=== PATIENT | male | born 1995 | race Caucasian/White ===

== ENCOUNTER 2020-02-10 17:10 | Emergency (ER) | payer BC, OTHER ==
[~2020-02-10] VITALS: Ht 187 cm; Wt 80.0 kg
--- NOTE | 2020-02-10 17:22 | ED Fall/Injury ---
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 Patient reports that the cattle hit his face in a horizontal motions striking his nose laterally. He has an obvious deformity to his nose. No obvious lacerations. He remembers the whole event. He was placed in a cervical collar by EMS, but is denying neck pain at this time.. Patient has been consuming alcohol throughout the day today along with marijuana. Approximately 30 minutes after the initial injury he had a near syncopal episode when he was walking. No previous history of syncope, chest pain, shortness of breath. Patient's family gave him a Percocet prior to EMS arriving for pain control. He was consuming alcohol all day yesterday and does feel like he is dehydrated. EMS was running normal saline 1 L while in route to the emergency department. Allergies and Home Medications Patient Home Medication List Home Medication List Reviewed: Yes Review of Systems Review of Systems Constitutional: no symptoms reported Ears, Nose, Mouth, Throat: nose pain; denies epistaxis Cardiovascular: syncope All Other Systems Reviewed Negative Unless Noted: Yes Past Ikebvwt-Mfeitm-Ayaydh Hx Patient Social History Physical Abuse: No Sexual Abuse: No Mistreated: No Fear: No Physical Exam Vital Signs Vital Signs - First Documented 02/10/20 17:10 Temp 35.9 Pulse 80 Resp 18 B/P (MAP) 130/68 (88) Pulse Ox 98 O2 Delivery Room Air Capillary Refill : Height, Weight, BMI Height: '" Weight: lbs. oz. kg; BMI Method: General Appearance: WD/WN, no apparent distress HEENT: other (Patient has a slightly deviated nasal bridge, no nasal hematoma is appreciated bilaterally. Tympanic membranes are clear bilaterally. No mckeon sign, no periorbital ecchymoses.) Neck: other (Cervical collar is in place.) Cardiovascular: regular rate, rhythm Respiratory: normal breath sounds, no respiratory distress, no accessory muscle use Gastrointestinal: non tender, soft, no organomegaly Extremities: normal inspection Neurologic/Psychiatric: no motor/sensory deficits, alert, normal mood/affect, other (Patient appears slightly intoxicated.) Skin: normal color, warm/dry Progress/Results/Core Measures Results/Orders Lab Results Laboratory Tests Test 02/10/20 17:30 Range/Units White Blood Count 9.6 4.3-11.0 10^3/uL Red Blood Count 4.41 4.35-5.85 10^6/uL Hemoglobin 13.3 13.3-17.7 G/DL Hematocrit 39 L 40-54 % Mean Corpuscular Volume 89 80-99 FL Mean Corpuscular Hemoglobin 30 25-34 PG Mean Corpuscular Hemoglobin Concent 34 32-36 G/DL Red Cell Distribution Width 13.1 10.0-14.5 % Platelet Count 216 130-400 10^3/uL Mean Platelet Volume 8.9 7.4-10.4 FL Sodium Level 141 135-145 MMOL/L Potassium Level 3.6 3.6-5.0 MMOL/L Chloride Level 106 98-107 MMOL/L Carbon Dioxide Level 21 21-32 MMOL/L Anion Gap 14 5-14 MMOL/L Blood Urea Nitrogen 14 7-18 MG/DL Creatinine 1.06 0.60-1.30 MG/DL Estimat Glomerular Filtration Rate > 60 BUN/Creatinine Ratio 13 Glucose Level 92 70-105 MG/DL Calcium Level 8.8 8.5-10.1 MG/DL Total Bilirubin 0.2 0.1-1.0 MG/DL Direct Bilirubin 0.2 0.0-0.3 MG/DL Indirect Bilirubin 0.0 MG/DL Aspartate Amino Transf (AST/SGOT) 24 5-34 U/L Alanine Aminotransferase (ALT/SGPT) 20 0-55 U/L Alkaline Phosphatase 67 40-136 U/L Total Protein 6.9 6.4-8.2 GM/DL Albumin 4.7 H 3.2-4.5 GM/DL My Orders Orders - ELIUD ROY MD Cbc No Diff (02/10/20 17:22) Basic Metabolic Panel (02/10/20 17:22) Liver Panel (02/10/20 17:22) Ekg Tracing (02/10/20 17:22) Ct Head/Face/Cervical Wo (02/10/20 17:22) Vital Signs/I&O 02/10/20 02/10/20 17:10 18:30 Temp 35.9 35.9 Pulse 80 80 Resp 18 18 B/P (MAP) 130/68 (88) 130/68 Pulse Ox 98 98 O2 Delivery Room Air Room Air Progress Progress Note : Progress Note Patient's examination was reassuring. He had an obvious slightly deviated nasal bone fracture without nasal septal hematomas. Given his mechanism of injury CT head, C-spine, max face were obtained. Patient was not in significant distress on exam and had already received pain medication prior to arrival. Given his prolonged day of alcohol consumption basic laboratory work was obtained along with an EKG in the setting of syncope. Possibly vasovagal related to his associated pain versus dehydration. Patient was not allowing an EKG to be performed. 182: Patient was becoming impatient with waiting for the results of his CT scans. I encouraged him to stay, but he stated that he had things that he needed to get done. He understood that we cannot entirely rule out significant intracranial injury without the results being back. He still elected to leave. Patient had clinical decision-making capacity to leave AGAINST MEDICAL ADVICE. He had an obvious nose fracture which I encouraged him to follow-up with either a facial plastic surgeon versus an ear nose and throat provider. Patient stated that he had no intentions on following up regarding his nose. Patient left prior to obtaining any sort of paperwork. Diagnostic Imaging Diagonstic Imaging: CT Comments CT of his head, neck, face significant for a comminuted displaced bilateral nasal bone fracture. No intracranial pathology, cervical spine was without acute injury. Departure Impression Primary Impression: Nasal bone fracture Qualified Codes: S02.2XXA - Fracture of nasal bones, initial encounter for closed fracture Disposition: 07 AGAINST MEDICAL ADVICE Condition: Against Medical Advice ELIUD ROY MD Feb 10, 2020 17:22
[2020-02-10 17:39] LABS: HEMOGLOBIN 13.3 G/DL (13.3-17.7); MEAN PLATELET VOLUME 8.9 FL (7.4-10.4); WHITE BLOOD COUNT 9.6 10^3/uL (4.3-11.0)
[2020-02-10 17:56] LABS: ALANINE AMINOTRANSFERASE 20 U/L (0-55); ALBUMIN 4.7 GM/DL (3.2-4.5); ALKALINE PHOSPHATASE 67 U/L (40-136); BILIRUBIN,DIRECT 0.2 MG/DL (0.0-0.3); BILIRUBIN,TOTAL 0.2 MG/DL (0.1-1.0); BUN/CREATININE RATIO 13; CALCIUM 8.8 MG/DL (8.5-10.1); CARBON DIOXIDE 21 MMOL/L (21-32); CHLORIDE 106 MMOL/L (98-107); CREATININE SERUM 1.06 MG/DL (0.60-1.30); GFR ESTIMATED > 60; GLUCOSE 92 MG/DL (70-105); POTASSIUM 3.6 MMOL/L (3.6-5.0); SODIUM 141 MMOL/L (135-145); TOTAL PROTEIN 6.9 GM/DL (6.4-8.2)
--- NOTE | 2020-02-10 18:27 | Diagnostic Imaging Report ---
PROCEDURE: CT head, face, and cervical spine without contrast. TECHNIQUE: Multiple contiguous axial images were obtained through the head, neck, and facial bones without the use of intravenous contrast. Sagittal and coronal reformations through the cervical spine and facial bones were also performed. Auto Exposure Controls were utilized during the CT exam to meet ALARA standards for radiation dose reduction. INDICATION: Kicked in the face by a cow. COMPARISON: No comparison is available. FINDINGS: The CT of the head demonstrates no evidence of acute intracranial hemorrhage. There is no subarachnoid hemorrhage or evidence of an extra-axial hematoma. There is no intracranial mass effect or shift. There is no hydrocephalus. De Jesus and white matter differentiation appears well-maintained. There is no abnormal low density within the basal ganglia or within the danielle. The mastoids are clear. There are no findings of a calvarial fracture. CT of the face demonstrates comminuted and mildly displaced fractures of both of the nasal bones. The bony orbit is intact. There are no findings of an orbital fracture. The intraorbital contents are unremarkable. There is no evidence of a fracture of the maxilla. The zygomatic arches are intact. There is no fracture of the pterygoids. There is no temporomandibular joint dislocation or evidence of a mandibular fracture. There is no air-fluid level evident within the paranasal sinuses. Cervical spine demonstrates normal alignment. There is normal alignment of the craniocervical junction. There are normal relationships of the lateral masses of C1 and C2. The facets are normally aligned. There is no facet joint or disc space widening. Vertebral body heights are maintained. There is no acute cervical spine fracture. There is no abnormal prevertebral soft tissue thickening. The lung apices appear clear. Soft tissues of the neck demonstrate no acute process. IMPRESSION: 1. No CT evidence of an acute intracranial abnormality. 2. No calvarial fracture. 3. Comminuted and displaced bilateral nasal bone fractures. No other facial fracture is evident. No blood products evident within the paranasal sinuses. Intraorbital contents unremarkable. 4. No CT evidence of an acute cervical spine fracture or traumatic malalignment. Dictated by: Dictated on workstation # [id number]
[2020-02-10 18:30] VITALS: BP 130/68
== END 2020-02-10 18:28 | disposition left against medical advice (07) ==
LOC: ER FS 17:13
DX: S02.2XXA Fracture of nasal bones, initial encounter for closed fracture (principal); W55.22XA Struck by cow, initial encounter
CPT/HCPCS: 36415; 70450; 70486; 72125; 80048; 80076; 85027